=== PATIENT | female | born 1995 | race Caucasian/White ===

== ENCOUNTER 2020-04-16 09:38 | Observation (INO) ==
[2020-04-16] MEDS ORDERED: *HR* LORazepam 2 MG/ML VIAL ONE ×3 (09:52→11:30)
[2020-04-16] MEDS ORDERED: *HR* LORazepam 2 MG/ML VIAL IVP ONE ×3 (09:52→11:30)
[2020-04-16] MEDS ORDERED: 0.9 % Sodium Chloride 1,000 ML IVC ONE (09:59)
[2020-04-16 10:32] LABS: Basophils # 0.1 K/mcL (0.0-0.2); Basophils % 1.2 %; Eosinophils # 0.1 K/mcL (0.0-0.6); Eosinophils % 0.9 %; Hemoglobin 11.5 g/dL (11.5-15.4); Immature Granulocytes % 0.1 % (0-4); Lymphocytes # 1.6 K/mcL (0.6-4.6); Lymphocytes % 23.6 %; Mean Corpuscular HGB Conc 30.3 g/dL (31.6-35.5); Mean Corpuscular Hemoglobin 25.7 pg (28.0-33.3); Mean Platelet Volume 10.3 fL (9.4-12.4); Monocytes # 0.4 K/mcL (0.0-1.3); Monocytes % 6.5 %; Neutrophils # 4.6 K/mcL (1.6-8.9); Platelet Count 336 K/mcL (140-400); Red Blood Count 4.47 M/mcL (3.82-4.97); Red Cell Distribution Width 13.8 % (11.5-14.5); Segmented Neutrophils % 67.7 %; White Blood Count 6.8 K/mcL (4.3-11.1)
[2020-04-16 10:52] LABS: BUN/Creatinine Ratio 10 (6-26); Blood Urea Nitrogen 7 mg/dL (6-20); Calcium 8.1 mg/dL (8.6-10.3); Carbon Dioxide 23 mEq/L (23-29); Chloride 110 mEq/L (98-107); Glucose 99 mg/dL (70-105); Osmolality,Calculated 284 (280-300); Potassium 3.7 mEq/L (3.5-5.1); Sodium 138 mEq/L (136-145); eGFR For African Americans > 60 (> 60); eGFR For Non-African Americans > 60 (> 60)
[2020-04-16 11:24] LABS: Bilirubin,Urine Negative (Negative); Blood,Urine Negative (Negative); Clarity,Urine Clear (Clear); Color,Urine Yellow (Yellow); Glucose,Urine (UA) Normal (Normal); Ketones,Urine Negative (Negative); Leukocyte Esterase,Urine Negative (Negative); Nitrite,Urine Negative (Negative); Protein,Urine Negative (Neg-Trace); Urobilinogen,Urine Normal (Normal)
[2020-04-16 11:34] LABS: Amphetamine Screen,Urine Negative ng/mL (Cutoff=1000); Barbiturate Screen,Urine Negative ng/mL (Cutoff=200); Benzodiazepines Screen,Urine Negative ng/mL (Cutoff=200); Cannabinoid Screen,Urine Negative ng/mL (Cutoff = 50); Cocaine Screen,Urine Negative ng/mL (Cutoff= 300); Opiate Screen,Urine Negative ng/mL (Cutoff=300); Phencyclidine Screen,Urine Negative ng/mL (Cutoff=25)
[2020-04-16] MEDS ORDERED: levETIRAcetam 1,000 MG in 0.9 % Sodium Chloride 100 ML IVPB ONE (12:46)
[2020-04-16] MEDS ORDERED: *HR* LORazepam 2 MG/ML VIAL IVP PRN (13:25)
[2020-04-16] MEDS ORDERED: Naloxone 0.4 MG/ML INJ IVP PRN (13:25)
[2020-04-16] MEDS ORDERED: Ondansetron 4 MG/2 ML VIAL IVP PRN (13:25)
[2020-04-16] MEDS: Topiramate 100 MG TABLET PO SCH (20:48)
[2020-04-17 02:47] LABS: Basophils # 0.1 K/mcL (0.0-0.2); Basophils % 0.8 %; Eosinophils # 0.1 K/mcL (0.0-0.6); Eosinophils % 1.6 %; Hematocrit 36.4 % (35.3-44.9); Hemoglobin 11.2 g/dL (11.5-15.4); Immature Granulocytes % 0.1 % (0-4); Lymphocytes # 2.5 K/mcL (0.6-4.6); Lymphocytes % 35.8 %; Mean Corpuscular HGB Conc 30.8 g/dL (31.6-35.5); Mean Corpuscular Hemoglobin 26.4 pg (28.0-33.3); Mean Corpuscular Volume 85.8 fL (83.0-100.0); Mean Platelet Volume 10.6 fL (9.4-12.4); Monocytes # 0.5 K/mcL (0.0-1.3); Monocytes % 7.2 %; Neutrophils # 3.9 K/mcL (1.6-8.9); Platelet Count 315 K/mcL (140-400); Red Blood Count 4.24 M/mcL (3.82-4.97); Segmented Neutrophils % 54.5 %; White Blood Count 7.1 K/mcL (4.3-11.1)
[2020-04-17 03:01] LABS: BUN/Creatinine Ratio 10 (6-26); Blood Urea Nitrogen 7 mg/dL (6-20); Carbon Dioxide 21 mEq/L (23-29); Chloride 110 mEq/L (98-107); Glucose 83 mg/dL (70-105); Osmolality,Calculated 281 (280-300); Potassium 3.7 mEq/L (3.5-5.1); Sodium 137 mEq/L (136-145); eGFR For African Americans > 60 (> 60); eGFR For Non-African Americans > 60 (> 60)
[2020-04-17 07:08] VITALS: BP 126/85
[2020-04-17] MEDS: Topiramate 100 MG TABLET PO SCH (08:41)
[2020-04-17] MEDS ORDERED: (Dextroamphetamine/Amphetamine [Adderall 30 Mg Tablet]) PO SCH (09:00)
[2020-04-17] MEDS ORDERED: FLUoxetine 20 MG CAPSULE PO SCH (09:00)
[2020-04-17] MEDS ORDERED: TOPIRAMATE 150 MG PO SCH (09:00)
[2020-04-17] MEDS ORDERED: levETIRAcetam 250 MG TABLET PO SCH (21:00)
== END 2020-04-17 14:30 | disposition home or self-care (01) ==
LOC: EMEROOARM 09:38 → 3BNU 09:38 → SUATTDRO 13:25 → 3BNU 16:30
PROVIDERS: ADMIT Internal Medicine; ATTEND Internal Medicine

== ENCOUNTER 2021-05-28 14:46 | Observation (INO) ==
[2021-05-28 15:41] LABS: Basophils % 0.2 %; Eosinophils # 0.1 K/mcL (0.0-0.6); Eosinophils % 0.6 %; Hematocrit 29.8 % (35.3-44.9); Hemoglobin 9.3 g/dL (11.5-15.4); Immature Granulocytes % 0.5 % (0-4); Lymphocytes % 16.1 %; Mean Corpuscular HGB Conc 31.2 g/dL (31.6-35.5); Mean Corpuscular Hemoglobin 25.8 pg (28.0-33.3); Mean Corpuscular Volume 82.8 fL (83.0-100.0); Mean Platelet Volume 10.3 fL (9.4-12.4); Monocytes # 0.8 K/mcL (0.0-1.3); Monocytes % 6.8 %; Neutrophils # 9.2 K/mcL (1.6-8.9); Platelet Count 281 K/mcL (140-400); Segmented Neutrophils % 75.8 %; White Blood Count 12.2 K/mcL (4.3-11.1)
[2021-05-28 15:49] LABS: Protein/Creatinine Ratio,Urine 0.19 mg/mg (0.00-0.20)
== END 2021-05-28 16:50 | disposition home or self-care (01) ==
LOC: 1NENULAB
PROVIDERS: ADMIT Obstetrics & Gynecology; ATTEND Obstetrics & Gynecology

== ENCOUNTER 2021-07-24 11:36 | Observation (INO) ==
[2021-07-24] MEDS ORDERED: Betamethasone Acet/SodPhos 30 MG/5 ML VIAL IM SCH (13:00)
[2021-07-24] MEDS ORDERED: Ringers Solution, Lactated 1,000 ML ONE (13:06)
[2021-07-24] MEDS ORDERED: Ringers Solution, Lactated 1,000 ML IVC ONE (13:06)
[2021-07-24 13:12] LABS: Bacteria,Urine Few per hpf (None-Few); Bilirubin,Urine Negative (Negative); Blood,Urine Negative (Negative); Clarity,Urine Turbid (Clear); Color,Urine Light-Yellow (Yellow); Glucose,Urine (UA) Normal (Normal); Ketones,Urine Negative (Negative); Leukocyte Esterase,Urine Trace (Negative); Mucus,Urine Few per lpf (None-Few); Nitrite,Urine Negative (Negative); PH,Urine 6.5 pH Units (5.0-8.0); Protein,Urine Trace mg/dL (Neg-Trace); RBC,Urine 0-3 per hpf (0-3); Specific Gravity,Urine 1.021 (1.010-1.025); Squamous Epithelial Cell,Urine Few per hpf (None-Few); Urobilinogen,Urine Normal (Normal)
[2021-07-24] MEDS ORDERED: Ringers Solution, Lactated 1,000 ML IVC SCH (13:15)
[2021-07-24 13:20] LABS: Basophils % 0.4 %; Eosinophils # 0.1 K/mcL (0.0-0.6); Eosinophils % 0.5 %; Hematocrit 31.3 % (35.3-44.9); Hemoglobin 9.9 g/dL (11.5-15.4); Immature Granulocytes % 1.2 % (0-4); Lymphocytes # 1.5 K/mcL (0.6-4.6); Lymphocytes % 15.6 %; Mean Corpuscular HGB Conc 31.6 g/dL (31.6-35.5); Mean Corpuscular Hemoglobin 25.5 pg (28.0-33.3); Mean Corpuscular Volume 80.7 fL (83.0-100.0); Mean Platelet Volume 10.9 fL (9.4-12.4); Monocytes # 0.5 K/mcL (0.0-1.3); Monocytes % 5.8 %; Neutrophils # 7.1 K/mcL (1.6-8.9); Platelet Count 327 K/mcL (140-400); Red Blood Count 3.88 M/mcL (3.82-4.97); Red Cell Distribution Width 15.2 % (11.5-14.5); Segmented Neutrophils % 76.5 %; White Blood Count 9.3 K/mcL (4.3-11.1)
[2021-07-24 13:33] LABS: Protein/Creatinine Ratio,Urine 0.22 mg/mg (0.00-0.20)
[2021-07-24 13:46] LABS: Alanine Aminotransferase 6 Units/L (7-52); Aspartate Amino Transferase 9 Units/L (13-39); BUN/Creatinine Ratio 14 (6-26); Blood Urea Nitrogen 7 mg/dL (6-20); Lactate Dehydrogenase 130 Units/L (140-271); Uric Acid 3.2 mg/dL (2.3-7.6); eGFR For African Americans > 60 (> 60); eGFR For Non-African Americans > 60 (> 60)
[2021-07-24] MEDS ORDERED: Acetaminophen 325 MG TABLET PO PRN (18:43)
[2021-07-24] MEDS ORDERED: Insulin DETEMIR 100 UNIT/ML X5UNITS SUBQ SCH (21:00)
[2021-07-24] MEDS ORDERED: *HR* Metformin 500 MG TABLET PO SCH (21:15)
[2021-07-25] MEDS ORDERED: *HR* Metformin 500 MG TABLET PO SCH ×2 (08:00)
== END 2021-07-25 18:01 | disposition home or self-care (01) ==
LOC: 1NENULAB
PROVIDERS: ADMIT Obstetrics & Gynecology; ATTEND Obstetrics & Gynecology

== ENCOUNTER → 2021-07-27 08:30 | Observation (INO) ==
[2021-07-26 20:53] LABS: Bacteria,Urine Moderate per hpf (None-Few); Bilirubin,Urine Negative (Negative); Blood,Urine Negative (Negative); Clarity,Urine Turbid (Clear); Color,Urine Yellow (Yellow); Glucose,Urine (UA) Normal (Normal); Ketones,Urine Negative (Negative); Leukocyte Esterase,Urine Small (Negative); Mucus,Urine Few per lpf (None-Few); Nitrite,Urine Negative (Negative); PH,Urine 6.5 pH Units (5.0-8.0); Protein,Urine Trace mg/dL (Neg-Trace); Specific Gravity,Urine 1.016 (1.010-1.025); Squamous Epithelial Cell,Urine Few per hpf (None-Few); Urobilinogen,Urine Normal (Normal)
== END | disposition home or self-care (01) ==
LOC: 1NENULAB
PROVIDERS: ADMIT Advanced Practice Midwife; ATTEND Advanced Practice Midwife

== ENCOUNTER 2021-07-28 09:59 | Inpatient (IN) ==
[~2021-07-28 09:59] MED LIST: CeFAZolin 2,000 MG/120 ML BAG IVPB ONE; Famotidine 20 MG/2 ML VIAL IVP ONE; Metoclopramide 10 MG/2 ML VIAL IVP ONE; Ringers Solution, Lactated 1,000 ML IVC ONE
[2021-07-28] MEDS ORDERED: Ringers Solution, Lactated 1,000 ML IVC SCH (10:00)
[2021-07-28 10:39] LABS: Basophils % 0.4 %; Eosinophils % 0.5 %; Hematocrit 32.9 % (35.3-44.9); Hemoglobin 10.4 g/dL (11.5-15.4); Immature Granulocytes % 0.3 % (0-4); Lymphocytes # 1.5 K/mcL (0.6-4.6); Lymphocytes % 19.7 %; Mean Corpuscular HGB Conc 31.6 g/dL (31.6-35.5); Mean Corpuscular Hemoglobin 25.6 pg (28.0-33.3); Mean Platelet Volume 11.3 fL (9.4-12.4); Monocytes # 0.5 K/mcL (0.0-1.3); Monocytes % 6.4 %; Neutrophils # 5.7 K/mcL (1.6-8.9); Platelet Count 288 K/mcL (140-400); Red Blood Count 4.06 M/mcL (3.82-4.97); Red Cell Distribution Width 15.2 % (11.5-14.5); Segmented Neutrophils % 72.7 %; White Blood Count 7.8 K/mcL (4.3-11.1)
[2021-07-28] MEDS ORDERED: *HR* Midazolam HCl 2 MG/2 ML VIAL IVP PRN (10:39)
[2021-07-28] MEDS ORDERED: Promethazine 6.25 MG in Water for inj. (sterile) 20 ML IVPB PRN (10:39)
[2021-07-28] MEDS ORDERED: *HR* Meperidine 25 MG/ML SYRINGE IVP PRN (10:39)
[2021-07-28] MEDS ORDERED: *HR* Labetalol 20 MG/4 ML SYRINGE IVP PRN (10:39)
[2021-07-28] MEDS ORDERED: *HR* HYDROmorphone PF 0.5 MG/0.5 ML SYRINGE IVP PRN (10:39)
[2021-07-28 10:48] LABS: Amphetamine Screen,Urine Negative ng/mL (Cutoff=1000); Barbiturate Screen,Urine Negative ng/mL (Cutoff=200); Benzodiazepines Screen,Urine Negative ng/mL (Cutoff=200); Cannabinoid Screen,Urine Negative ng/mL (Cutoff = 50); Cocaine Screen,Urine Negative ng/mL (Cutoff= 300); Opiate Screen,Urine Negative ng/mL (Cutoff=300); Phencyclidine Screen,Urine Negative ng/mL (Cutoff=25)
[2021-07-28] MEDS ORDERED: *HR* Oxytocin 10 UNIT/ML VIAL IM ONE (11:00)
[2021-07-28] MEDS ORDERED: Ketorolac 30 MG/ML VIAL ONE (11:00)
[2021-07-28] MEDS ORDERED: Ondansetron 4 MG/2 ML VIAL ONE (11:00)
[2021-07-28] MEDS ORDERED: Ringers Solution, Lactated 1,000 ML ONE ×2 (11:00→11:57)
[2021-07-28] MEDS ORDERED: *HR* Magnesium Sulfate 1 GM/2 ML VIAL ONE (11:00)
[2021-07-28] MEDS ORDERED: *HR* Morphine Sulfate/PF 10 MG/10 ML AMPUL ONE (11:00)
[2021-07-28] MEDS ORDERED: EPHEDrine 50 MG/ML VIAL ONE (11:00)
[2021-07-28] MEDS ORDERED: *HR* Midazolam HCl 2 MG/2 ML VIAL ONE (11:00)
[2021-07-28] MEDS ORDERED: *HR* FentaNYL (PF) 100 MCG/2 ML VIAL ONE (11:00)
[2021-07-28 11:12] LABS: Influenza A PCR Negative (Negative); Influenza B PCR Negative (Negative); Resp. Syncytial Virus PCR Negative (Negative)
[2021-07-28 11:13] LABS: SARS-CoV-2 by PCR (In House) Negative (Negative)
[2021-07-28] MEDS ORDERED: Rho Immune Globulin 1,500 UNIT SYRINGE IM ONE (14:15)
[2021-07-28] MEDS ORDERED: Ondansetron 4 MG/2 ML VIAL IVP PRN (14:15)
[2021-07-28] MEDS ORDERED: Simethicone 80 MG TAB.CHEW PO PRN (14:15)
[2021-07-28] MEDS ORDERED: Oxytocin 20 units/ LR 1000 mL 20 UNIT/1,000 ML BAG IVC SCH ×2 (14:15)
[2021-07-28] MEDS ORDERED: Metoclopramide 10 MG/2 ML VIAL IVP PRN (14:15)
[2021-07-28] MEDS: Ibuprofen 600 MG TABLET PO SCH ×2 (15:15→20:37)
[2021-07-28] MEDS: Acetaminophen 325 MG TABLET PO SCH ×2 (15:16→20:37)
[2021-07-28] MEDS: Ringers Solution, Lactated 1,000 ML IVC SCH (18:36)
[2021-07-28] MEDS: *HR* Enoxaparin 60 MG/0.6 ML SYRINGE SQ SCH (20:37)
[2021-07-29] MEDS: Ringers Solution, Lactated 1,000 ML IVC SCH (01:01)
[2021-07-29] MEDS: Ibuprofen 600 MG TABLET PO SCH ×4 (03:19→22:10)
[2021-07-29] MEDS: Acetaminophen 325 MG TABLET PO SCH ×4 (03:19→22:10)
[2021-07-29 08:09] VITALS: O2SAT 100
[2021-07-29] MEDS: *HR* Enoxaparin 60 MG/0.6 ML SYRINGE SQ SCH ×2 (09:08→22:11)
[2021-07-29] MEDS: Prenatal Vit/FA 1 EACH TABLET PO SCH (09:09)
[2021-07-29 09:38] LABS: Basophils % 0.5 %; Eosinophils # 0.1 K/mcL (0.0-0.6); Eosinophils % 0.7 %; Immature Granulocytes % 0.3 % (0-4); Lymphocytes # 1.7 K/mcL (0.6-4.6); Lymphocytes % 23.1 %; Mean Corpuscular HGB Conc 32.1 g/dL (31.6-35.5); Mean Corpuscular Hemoglobin 25.8 pg (28.0-33.3); Mean Corpuscular Volume 80.3 fL (83.0-100.0); Monocytes # 0.6 K/mcL (0.0-1.3); Monocytes % 7.7 %; Neutrophils # 5.1 K/mcL (1.6-8.9); Platelet Count 269 K/mcL (140-400); Red Blood Count 2.99 M/mcL (3.82-4.97); Red Cell Distribution Width 15.3 % (11.5-14.5); Segmented Neutrophils % 67.7 %; White Blood Count 7.5 K/mcL (4.3-11.1)
[2021-07-29 09:39] LABS: Hemoglobin 7.7 g/dL (11.5-15.4)
[2021-07-30] MEDS: Ibuprofen 600 MG TABLET PO SCH (07:13)
[2021-07-30] MEDS: Acetaminophen 325 MG TABLET PO SCH ×2 (07:14→07:33)
[2021-07-30] MEDS: Prenatal Vit/FA 1 EACH TABLET PO SCH (07:27)
[2021-07-30] MEDS: *HR* Enoxaparin 60 MG/0.6 ML SYRINGE SQ SCH (07:58)
[2021-07-30 08:12] VITALS: BP 122/74; PULSE 89; TEMP 98.3
== END 2021-07-30 12:30 | disposition home or self-care (01) | DRG 540 ==
LOC: 1NENULAB → 1NENUOBS 15:01
PROVIDERS: ADMIT Obstetrics & Gynecology; ATTEND Obstetrics & Gynecology

== ENCOUNTER → 2022-05-27 19:00 | Observation (INO) ==
[2022-05-27 18:50] LABS: Bacteria,Urine Few per hpf (None-Few); Bilirubin,Urine Negative (Negative); Blood,Urine Negative (Negative); Budding Yeast,Urine Few per hpf (None Seen); Clarity,Urine Turbid (Clear); Color,Urine Yellow (Yellow); Glucose,Urine (UA) Normal (Normal); Ketones,Urine Negative (Negative); Leukocyte Esterase,Urine Large (Negative); Mucus,Urine Many per lpf (None-Few); Nitrite,Urine Negative (Negative); Protein,Urine 30 mg/dL (Neg-Trace); Specific Gravity,Urine 1.026 (1.010-1.025); Squamous Epithelial Cell,Urine Moderate per hpf (None-Few); Urobilinogen,Urine Normal (Normal); WBC,Urine 50-100 per hpf (0-3)
== END | disposition home or self-care (01) ==
LOC: 1NENULAB
PROVIDERS: ADMIT Obstetrics & Gynecology; ATTEND Obstetrics & Gynecology

== ENCOUNTER → 2022-05-28 17:05 | Observation (INO) ==
[2022-05-28 10:30] LABS: Basophils % 0.4 %; Eosinophils # 0.1 K/mcL (0.0-0.6); Eosinophils % 0.6 %; Hematocrit 32.7 % (35.3-44.9); Hemoglobin 10.3 g/dL (11.5-15.4); Immature Granulocytes % 0.4 % (0-4); Lymphocytes # 1.2 K/mcL (0.6-4.6); Lymphocytes % 15.5 %; Mean Corpuscular HGB Conc 31.5 g/dL (31.6-35.5); Mean Corpuscular Hemoglobin 24.5 pg (28.0-33.3); Mean Corpuscular Volume 77.9 fL (83.0-100.0); Mean Platelet Volume 10.8 fL (9.4-12.4); Monocytes # 0.4 K/mcL (0.0-1.3); Monocytes % 5.2 %; Neutrophils # 6.2 K/mcL (1.6-8.9); Platelet Count 283 K/mcL (140-400); Red Cell Distribution Width 16.1 % (11.5-14.5); Segmented Neutrophils % 77.9 %
[2022-05-28 10:43] LABS: Alanine Aminotransferase 11 Units/L (7-52); Aspartate Amino Transferase 11 Units/L (13-39); BUN/Creatinine Ratio 10 (6-26); Blood Urea Nitrogen 5 mg/dL (6-20); Lactate Dehydrogenase 124 Units/L (140-271); Uric Acid 3.1 mg/dL (2.3-7.6); eGFR For African Americans > 60 (> 60); eGFR For Non-African Americans > 60 (> 60)
[~2022-05-28 17:05] MED LIST changes: -CeFAZolin 2,000 MG/120 ML BAG IVPB ONE; -Famotidine 20 MG/2 ML VIAL IVP ONE; -Metoclopramide 10 MG/2 ML VIAL IVP ONE; -Ringers Solution, Lactated 1,000 ML IVC ONE; +Ringers Solution, Lactated 1,000 ML IVC SCH; +levETIRAcetam 1,000 MG in 0.9 % Sodium Chloride 100 ML IVPB ONE; +levETIRAcetam 250 MG TABLET PO SCH
== END | disposition home or self-care (01) ==
LOC: 1NENULAB
PROVIDERS: ADMIT Advanced Practice Midwife; ATTEND Advanced Practice Midwife

== ENCOUNTER → 2022-06-18 14:01 | Observation (INO) ==
[2022-06-18 13:41] LABS: Bacteria,Urine Few per hpf (None-Few); Hyaline Casts,Urine Few per lpf (None Seen); Mucus,Urine Few per lpf (None-Few); Squamous Epithelial Cell,Urine Moderate per hpf (None-Few)
[2022-06-18 14:15] LABS: Bilirubin,Urine Negative (Negative); Blood,Urine Negative (Negative); Clarity,Urine Turbid (Clear); Color,Urine Light-Yellow (Yellow); Glucose,Urine (UA) Normal (Normal); Ketones,Urine Negative (Negative); Leukocyte Esterase,Urine Large (Negative); Nitrite,Urine Negative (Negative); PH,Urine 6.5 pH Units (5.0-8.0); Protein,Urine Trace mg/dL (Neg-Trace); Specific Gravity,Urine 1.016 (1.010-1.025); Urobilinogen,Urine Normal (Normal)
[2022-06-18 15:17] LABS: Candida DNA Not Detected (Not Detect); Gardnerella DNA Not Detected (Not Detect); Trichomonas DNA Not Detected (Not Detect)
== END | disposition home or self-care (01) ==
LOC: 1NENULAB
PROVIDERS: ADMIT Advanced Practice Midwife; ATTEND Advanced Practice Midwife

== ENCOUNTER 2022-07-16 18:54 | Inpatient (IN) ==
[2022-07-16 18:52] LABS: Basophils % 0.4 %; Eosinophils # 0.1 K/mcL (0.0-0.6); Eosinophils % 1.3 %; Hematocrit 32.4 % (35.3-44.9); Hemoglobin 9.8 g/dL (11.5-15.4); Immature Granulocytes % 0.4 % (0-4); Lymphocytes # 1.3 K/mcL (0.6-4.6); Lymphocytes % 17.6 %; Mean Corpuscular HGB Conc 30.2 g/dL (31.6-35.5); Mean Corpuscular Hemoglobin 24.3 pg (28.0-33.3); Mean Corpuscular Volume 80.2 fL (83.0-100.0); Mean Platelet Volume 10.9 fL (9.4-12.4); Monocytes # 0.6 K/mcL (0.0-1.3); Monocytes % 7.2 %; Neutrophils # 5.6 K/mcL (1.6-8.9); Platelet Count 251 K/mcL (140-400); Red Blood Count 4.04 M/mcL (3.82-4.97); Red Cell Distribution Width 18.6 % (11.5-14.5); Segmented Neutrophils % 73.1 %; White Blood Count 7.6 K/mcL (4.3-11.1)
[~2022-07-16 18:54] MED LIST changes: +CeFAZolin Syr 3,000MG/30 ML 3,000 MG/30 ML SYRINGE IVPB ONE; +Famotidine 20 MG/2 ML VIAL IVP ONE; +Magnesium Sulf 20 gm/SW 500mL 20 GM/500 ML IV.SOLN IVC SCH; +Magnesium Sulf 20 gm/SW 500mL 6 GM/150 ML BAG IV ONE; +Metoclopramide 10 MG/2 ML VIAL IVP ONE; -Ringers Solution, Lactated 1,000 ML IVC SCH; +Ringers Solution, Lactated 1,000 ML ONE; -levETIRAcetam 1,000 MG in 0.9 % Sodium Chloride 100 ML IVPB ONE; -levETIRAcetam 250 MG TABLET PO SCH
[2022-07-16 19:07] LABS: Alanine Aminotransferase 8 Units/L (7-52); Aspartate Amino Transferase 12 Units/L (13-39); BUN/Creatinine Ratio 12 (6-26); Blood Urea Nitrogen 5 mg/dL (6-20); Lactate Dehydrogenase 117 Units/L (140-271); Uric Acid 2.8 mg/dL (2.3-7.6)
[2022-07-16] MEDS ORDERED: Metoclopramide 10 MG/2 ML VIAL IVP ONE (19:12)
[2022-07-16] MEDS ORDERED: Metoclopramide 10 MG/2 ML VIAL ONE (19:16)
[2022-07-16 19:57] LABS: Amphetamine Screen,Urine Negative ng/mL (Cutoff=1000); Barbiturate Screen,Urine Negative ng/mL (Cutoff=200); Benzodiazepines Screen,Urine Negative ng/mL (Cutoff=200); Cannabinoid Screen,Urine Negative ng/mL (Cutoff = 50); Cocaine Screen,Urine Negative ng/mL (Cutoff= 300); Creatinine,Urine 95 mg/dL; Opiate Screen,Urine Negative ng/mL (Cutoff=300); Phencyclidine Screen,Urine Negative ng/mL (Cutoff=25)
[2022-07-16] MEDS ORDERED: Betamethasone Acet/SodPhos 30 MG/5 ML VIAL IM SCH (20:00)
[2022-07-16 20:56] LABS: Prothrombin Time 11.5 Seconds (9.4-12.1)
[2022-07-17] MEDS ORDERED: Ringers Solution, Lactated 1,000 ML ONE (07:59)
[2022-07-17] MEDS ORDERED: SUMAtriptan succinate 50 MG TABLET PO PRN (12:30)
[2022-07-17] MEDS ORDERED: Acetaminophen 325 MG TABLET PO PRN (12:30)
[2022-07-17] MEDS ORDERED: Ondansetron 4 MG/2 ML VIAL IVP PRN (18:04)
[2022-07-17 18:47] LABS: Bilirubin,Indirect 0.2 mg/dL (0.0-1.0); Bilirubin,Total 0.2 mg/dL (0.3-1.0)
[2022-07-17] MEDS ORDERED: Betamethasone Acet/SodPhos 30 MG/5 ML VIAL IM SCH (20:00)
[2022-07-18 05:01] LABS: Basophils % 0.1 %; Hematocrit 29.1 % (35.3-44.9); Hemoglobin 8.8 g/dL (11.5-15.4); Immature Granulocytes % 0.7 % (0-4); Lymphocytes # 0.7 K/mcL (0.6-4.6); Lymphocytes % 8.8 %; Mean Corpuscular HGB Conc 30.2 g/dL (31.6-35.5); Mean Corpuscular Hemoglobin 24.4 pg (28.0-33.3); Mean Corpuscular Volume 80.6 fL (83.0-100.0); Mean Platelet Volume 11.2 fL (9.4-12.4); Monocytes # 0.3 K/mcL (0.0-1.3); Monocytes % 3.6 %; Neutrophils # 7.2 K/mcL (1.6-8.9); Platelet Count 241 K/mcL (140-400); Red Blood Count 3.61 M/mcL (3.82-4.97); Red Cell Distribution Width 19.5 % (11.5-14.5); Segmented Neutrophils % 86.8 %; White Blood Count 8.3 K/mcL (4.3-11.1)
[2022-07-18 06:24] VITALS: BP 107/67; PULSE 88; TEMP 98; O2SAT 95
[2022-07-18 16:33] LABS: Basophils % 0.2 %; Eosinophils % 0.1 %; Hematocrit 29.4 % (35.3-44.9); Immature Granulocytes % 0.9 % (0-4); Lymphocytes # 1.3 K/mcL (0.6-4.6); Lymphocytes % 14.5 %; Mean Corpuscular HGB Conc 30.6 g/dL (31.6-35.5); Mean Corpuscular Hemoglobin 24.7 pg (28.0-33.3); Mean Corpuscular Volume 80.8 fL (83.0-100.0); Mean Platelet Volume 10.7 fL (9.4-12.4); Monocytes # 0.7 K/mcL (0.0-1.3); Monocytes % 7.4 %; Platelet Count 232 K/mcL (140-400); Red Blood Count 3.64 M/mcL (3.82-4.97); Red Cell Distribution Width 19.9 % (11.5-14.5); Segmented Neutrophils % 76.9 %; White Blood Count 9.2 K/mcL (4.3-11.1)
[2022-07-18 17:51] LABS: INR 1.1; Prothrombin Time 11.9 Seconds (9.4-12.1)
[2022-07-18 17:52] LABS: Activated Partial Thrombo Time 28.8 Seconds (26.0-36.0)
[2022-07-18 18:01] LABS: Albumin 3.1 g/dL (3.5-5.7); Albumin/Globulin Ratio 1.1 (1.1-2.2); Bilirubin,Indirect 0.3 mg/dL (0.0-1.0); Bilirubin,Total 0.3 mg/dL (0.3-1.0); Globulin 2.8 g/dL (2.4-3.5); Total Protein 5.9 g/dL (6.4-8.9)
[2022-07-19] MEDS ORDERED: Prenatal Vit/FA 1 EACH TABLET PO SCH (09:00)
== END 2022-07-18 19:46 | disposition home or self-care (01) | DRG 833 ==
LOC: 1NENULAB → 1NENUOBS 07-17 12:39 → 1NENULAB 07-18 10:59
PROVIDERS: ADMIT Obstetrics & Gynecology; ATTEND Obstetrics & Gynecology

== ENCOUNTER → 2022-07-23 20:30 | Observation (INO) ==
[2022-07-23 18:28] LABS: Bacteria,Urine Few per hpf (None-Few); Bilirubin,Urine Negative (Negative); Blood,Urine Negative (Negative); Clarity,Urine Clear (Clear); Color,Urine Light-Yellow (Yellow); Glucose,Urine (UA) Normal (Normal); Ketones,Urine Negative (Negative); Leukocyte Esterase,Urine Trace (Negative); Mucus,Urine Few per lpf (None-Few); Nitrite,Urine Negative (Negative); PH,Urine 6.5 pH Units (5.0-8.0); Protein,Urine Negative (Neg-Trace); RBC,Urine 0-3 per hpf (0-3); Specific Gravity,Urine 1.009 (1.010-1.025); Squamous Epithelial Cell,Urine Few per hpf (None-Few); Urobilinogen,Urine Normal (Normal)
== END | disposition home or self-care (01) ==
LOC: 1NENULAB
PROVIDERS: ADMIT Obstetrics & Gynecology; ATTEND Obstetrics & Gynecology

== ENCOUNTER → 2022-08-03 14:30 | Observation (INO) ==
[2022-08-03 14:09] LABS: Bacteria,Urine Few per hpf (None-Few); Bilirubin,Urine Negative (Negative); Blood,Urine Negative (Negative); Clarity,Urine Turbid (Clear); Color,Urine Yellow (Yellow); Glucose,Urine (UA) Normal (Normal); Ketones,Urine Negative (Negative); Leukocyte Esterase,Urine Moderate (Negative); Mucus,Urine Moderate per lpf (None-Few); Nitrite,Urine Negative (Negative); PH,Urine 6.5 pH Units (5.0-8.0); Protein,Urine 30 mg/dL (Neg-Trace); RBC,Urine 0-3 per hpf (0-3); Specific Gravity,Urine 1.023 (1.010-1.025); Squamous Epithelial Cell,Urine Moderate per hpf (None-Few); Urobilinogen,Urine Normal (Normal); WBC,Urine 15-30 per hpf (0-3)
== END | disposition home or self-care (01) ==
LOC: 1NENULAB
PROVIDERS: ADMIT Obstetrics & Gynecology; ATTEND Obstetrics & Gynecology

== ENCOUNTER 2022-08-31 13:34 | Inpatient (IN) ==
[~2022-08-31 13:34] MED LIST changes: +*HR* FentaNYL (PF) 100 MCG/2 ML VIAL ONE; +*HR* Midazolam HCl 2 MG/2 ML VIAL ONE; +*HR* Morphine Sulfate/PF 10 MG/10 ML AMPUL ONE; +*HR* Phenylephrine 10 MG/ML VIAL ONE; +EPHEDrine sulfate 50 MG/10 ML VIAL IVP ONE; -Magnesium Sulf 20 gm/SW 500mL 20 GM/500 ML IV.SOLN IVC SCH; -Magnesium Sulf 20 gm/SW 500mL 6 GM/150 ML BAG IV ONE; +Ondansetron 4 MG/2 ML VIAL ONE
[2022-08-31] MEDS ORDERED: Oxytocin 30 UNIT/503 ML BAG IVC SCH ×3 (13:45→18:01)
[2022-08-31] MEDS ORDERED: Lidocaine -MPF 2% 2 ML VIAL ONE (14:05)
[2022-08-31] MEDS ORDERED: Acetaminophen IV 1,000 MG/100 ML BAG IVPB ONE (14:16)
[2022-08-31] MEDS ORDERED: *HR* Oxytocin 10 UNIT/ML VIAL ONE (14:26)
[2022-08-31] MEDS ORDERED: Calcium Gluconate 1,000 MG/10 ML VIAL IVP PRN (15:18)
[2022-08-31] MEDS ORDERED: Magnesium Sulf 20 gm/SW 500mL 20 GM/500 ML IV.SOLN IVC SCH ×2 (15:30→18:01)
[2022-08-31] MEDS ORDERED: Acetaminophen 325 MG TABLET PO SCH (18:01)
[2022-08-31] MEDS ORDERED: *HR* OxyCODONE Immed Rel 5 MG TABLET PO PRN (18:01)
[2022-08-31] MEDS ORDERED: Ondansetron 4 MG/2 ML VIAL IVP PRN (18:01)
[2022-08-31] MEDS ORDERED: Simethicone 80 MG TAB.CHEW PO PRN (18:01)
[2022-08-31] MEDS ORDERED: Metoclopramide 10 MG/2 ML VIAL IVP PRN (18:01)
[2022-08-31] MEDS ORDERED: OXYTOCIN/RINGERS LACTATE 10 UNIT/166.6 ML BAG IVC ONE (18:01)
[2022-08-31] MEDS ORDERED: IMITREX PO PRN (18:01)
[2022-08-31] MEDS ORDERED: Ibuprofen 600 MG TABLET PO SCH (18:15)
[2022-08-31 20:27] VITALS: TEMP 98; O2SAT 96
[2022-08-31 21:42] VITALS: BP 111/63; PULSE 87
[2022-09-01] MEDS ORDERED: Prenatal Vit/FA 1 EACH TABLET PO SCH (09:00)
[2022-09-01] MEDS ORDERED: Patient Taking Own Medication 1 EACH PO SCH (09:00)
== END 2022-08-31 23:59 | disposition other institution (70) | DRG 540 ==
LOC: 1NENULAB → 1NENUOBS 17:48
PROVIDERS: ADMIT Obstetrics & Gynecology; ATTEND Obstetrics & Gynecology